=== PATIENT | female | born 1955 | race Caucasian/White ===

== ENCOUNTER → 2016-08-15 | Outpatient (CLI) | payer BC, OTHER ==
[~2016-08-15] MED LIST: ASPIRIN 81M81 MG/TA2 PO; BACTRIM DS 8001 TAB PO; CALCIUM CARBON650 M2; CALCIUM CARBON650 M2 PO; CALCIUM CARBONATE PO; CLEOCIN HCL300 MG PO; CYMBALTA 60MG60 MG PO; EXCEDRIN 250 MG1 TAB PO; HCTZ 25MG TAB25 MG PO; IMITREX50 MG PO; INDERAL80 MG PO; MAGNESIUM OXIDE PO; MVI PO; NEXIUM PO; PERCOCET 325 MG1 TA2 PO; PRIL40 PO; PRINIVIL10 MG PO; ULTRACET 325 MG1 TAB PO; VITAMIN C500 MG PO
== END ==
LOC: WCC 11:00
DX: T81.31XA Disruption of external operation (surgical) wound, not elsewhere classified, initial encounter (principal)
CPT/HCPCS: 17719; A6212; G0463

== ENCOUNTER → 2016-08-22 | Outpatient (CLI) | payer BC, OTHER | LOC: WCC 11:41 | DX: T81.31XA Disruption of external operation (surgical) wound, not elsewhere classified, initial encounter (principal) | CPT/HCPCS: 27517; A6207; G0463 ==

== ENCOUNTER → 2016-08-29 | Outpatient (CLI) | payer OTHER | LOC: WCC 09:09 | DX: T81.31XA Disruption of external operation (surgical) wound, not elsewhere classified, initial encounter (principal) | CPT/HCPCS: 17717; 27510; A6197; A6212; G0463 ==

== ENCOUNTER → 2016-09-08 | Outpatient (CLI) | payer OTHER | LOC: WCC 08:30 | DX: Z09 Encounter for follow-up examination after completed treatment for conditions other than malignant neoplasm (principal) | CPT/HCPCS: G0463 ==

== ENCOUNTER → 2016-12-09 | Outpatient (CLI) | payer OTHER | LOC: MC.RAD 13:55 | DX: Z12.31 Encounter for screening mammogram for malignant neoplasm of breast (principal) ==

== ENCOUNTER 2017-02-03 22:53 | Emergency (ER) | payer OTHER ==
[~2017-02-03] VITALS: Ht 162.6 cm; Wt 77.3 kg
[~2017-02-03 22:53] MED LIST changes: -ASPIRIN 81M81 MG/TA2 PO; -BACTRIM DS 8001 TAB PO; -CALCIUM CARBON650 M2; -CALCIUM CARBON650 M2 PO; -CLEOCIN HCL300 MG PO; -HCTZ 25MG TAB25 MG PO; -PRIL40 PO; -PRINIVIL10 MG PO
[2017-02-03 22:56] VITALS: TEMP 98.7
[2017-02-03] MEDS ORDERED: BACTRIM DS 8001 TAB PO (22:59)
[2017-02-03] MEDS ORDERED: PRIL40 PO (23:02)
[2017-02-03] MEDS ORDERED: CALCIUM CARBON650 M2 PO (23:03)
[2017-02-03] MEDS ORDERED: CALCIUM CARBON650 M2 (23:03)
[2017-02-03] MEDS ORDERED: PRINIVIL10 MG PO (23:04)
[2017-02-03] MEDS ORDERED: HCTZ 25MG TAB25 MG PO (23:04)
[2017-02-03] MEDS ORDERED: ASPIRIN 81M81 MG/TA2 PO (23:05)
[2017-02-03 23:35] LABS: BASO # 0.1 (0.0-0.2); BASO % 0.6 % (0.0-2.0); EOS # 0.2 (0.0-0.7); EOS % 2.9 % (0-4.0); GRAN # 4.5 (1.4-6.5); GRAN % 57.4 % (42.2-75.2); HEMATOCRIT 42.2 % (37.0-47.0); HEMOGLOBIN 13.7 g/dl (12.5-16.0); LYMPH # 2.1 (1.2-3.4); LYMPH % 26.6 % (20.0-51.0); MEAN CELL VOLUME 86 fl (80.0-100.0); MEAN CORPUSCULAR HEMOGLOBIN 28 pg (27.0-31.0); MEAN CORPUSCULAR HGB CONC 33 g/dl (33.0-37.0); MEAN PLATELET VOLUME 10.2 fl (7.4-10.4); MONO % 12.1 % (1.7-9.3); PLATELET COUNT 316 K/mm3 (130-400); RED BLOOD COUNT 4.89 M/mm3 (4.10-5.30); REDCELL DISTRIBUTION WIDTH-CV 15.9 % (11.5-14.5); WHITE BLOOD COUNT 7.9 K/mm3 (4.8-10.8)
[2017-02-03 23:49] LABS: C-REACTIVE PROTEIN 0.7 mg/dL (0.0-0.9); CALCIUM 8.6 mg/dL (8.4-10.2); CREATININE, serum 0.65 mg/dL (0.52-1.25); POTASSIUM 3.4 mmol/L (3.4-5.0)
[2017-02-03] MEDS ORDERED: CLEOCIN HCL300 MG PO (23:51)
[2017-02-04 00:20] VITALS: BP 109/70; PULSE 68
== END 2017-02-04 00:24 | disposition home or self-care (01) ==
LOC: COL.ER 22:53
PROVIDERS: Physician Assistant
DX: L03.113 Cellulitis of right upper limb (principal); S50.861A Insect bite (nonvenomous) of right forearm, initial encounter; W57.XXXA Bitten or stung by nonvenomous insect and other nonvenomous arthropods, initial encounter; G43.909 Migraine, unspecified, not intractable, without status migrainosus

== ENCOUNTER → 2018-02-23 | Outpatient (CLI) | payer OTHER ==
[~2018-02-23] MED LIST changes: +ASPIRIN 81M81 MG/TA2 PO; +BACTRIM DS 8001 TAB PO; +CALCIUM CARBON650 M2; +CALCIUM CARBON650 M2 PO; +CLEOCIN HCL300 MG PO; +HCTZ 25MG TAB25 MG PO; +PRIL40 PO; +PRINIVIL10 MG PO
== END ==
LOC: MC.RAD 01-19 13:00
DX: Z12.31 Encounter for screening mammogram for malignant neoplasm of breast (principal)

== ENCOUNTER → 2018-11-17 | Outpatient (CLI) | payer OTHER | LOC: COL.RAD 16:12 | DX: K57.32 Diverticulitis of large intestine without perforation or abscess without bleeding (principal); Z90.710 Acquired absence of both cervix and uterus | CPT/HCPCS: Q9967 ==

== ENCOUNTER → 2019-03-15 | Outpatient (CLI) | payer OTHER, MEDICARE | LOC: MC.RAD 10:58 | DX: Z12.31 Encounter for screening mammogram for malignant neoplasm of breast (principal) ==

== ENCOUNTER → 2020-03-19 | Outpatient (CLI) | payer OTHER | LOC: MC.RAD 11:17 | DX: Z12.31 Encounter for screening mammogram for malignant neoplasm of breast (principal) ==

== ENCOUNTER → 2021-05-09 | Outpatient (CLI) | payer OTHER | LOC: MC.RAD 13:06 | DX: Z12.31 Encounter for screening mammogram for malignant neoplasm of breast (principal) ==

== ENCOUNTER 2021-12-16 17:51 | Emergency (ER) | payer OTHER ==
[~2021-12-16] VITALS: Ht 162.6 cm; Wt 75.0 kg
[2021-12-16 21:08] VITALS: TEMP 98.7
[2021-12-16] MEDS ORDERED: NORCO 325 MG-51 TAB PO (22:11)
[2021-12-16 22:40] VITALS: BP 142/61; PULSE 70
== END 2021-12-16 22:45 | disposition home or self-care (01) ==
LOC: COL.ER 17:51
DX: S42.491A Other displaced fracture of lower end of right humerus, initial encounter for closed fracture (principal); Z98.890 Other specified postprocedural states; Z96.611 Presence of right artificial shoulder joint; W01.198A Fall on same level from slipping, tripping and stumbling with subsequent striking against other object, initial encounter
CPT/HCPCS: J1885; J2405; J3010; J7120